=== PATIENT | female | born 1975 | race Caucasian/White ===

== ENCOUNTER → 2020-01-04 14:18 | Outpatient (CLI) | payer OTHER, SELFPAY ==
[2020-01-07 06:44] LABS: COVID19 Sendout Not Detected (Not Detect)
== END ==
PROVIDERS: Visit Provider Physician Assistant
DX: Z01.818 Encounter for other preprocedural examination (principal)
CPT/HCPCS: 87635

== ENCOUNTER 2020-01-07 07:10 | Day surgery (SDC) | payer OTHER, SELFPAY ==
[2020-01-07] MEDS: PROPARACAINE 0.5% OPHTH SOL 2 DROPS EYE-OP (08:05)
[2020-01-07] MEDS: CATARACT EYE COMPOUND (10 DROPS/SYRINGE) 3 DROPS EYE-OP (08:10)
[2020-01-07 08:17] VITALS: BP 100/66; PULSE 74; RESP 20; TEMP 36.2; O2SAT 100; BMI 20.5
--- NOTE | 2020-01-07 09:05 | P.OP_ITS ---
Operative Date/Time/Diagnoses Pre-op diagnosis: Nuclear Cataract Left eye Post-op diagnosis: same Procedure & Clinicians Same procedure as scheduled: Yes Surgeon: Andres Michael Anesthesia Type: MAC +/- and Sedation Operative Notes Procedure in detail: Patient brought to the operating suite. Tetracaine drops placed in the left eye. Patient was prepped and draped in sterile manner. Wire lid speculum was placed in the eye. Betadine drops were placed on the eye. This was irrigated. Lidocaine jelly was placed on the eye. A paracentesis port was created with a side-port blade. 0.1 mL 1% preservative free lidocaine was injected into the anterior chamber. The anterior chamber was deepened with viscoelastic. 2.6 mm keratome was used to create a temporal clear corneal incision. Cystotome and Utrata forceps were used to create continuous tear capsulorrhexis. Balanced salt solution was used to hydro dissect the nucleus. The phacoemulsification handpiece was inserted and the nucleus was removed using the stop and chop technique. The irrigation aspiration handpiece was inserted and the remaining cortex was removed. Anterior chamber was deepened with viscoe lastic. An Rowe ZCB00 intraocular lens with a power of 20.0 was injected into the capsular bag. Irrigation aspiration handpiece was inserted and the remaining viscoelastic was removed. Incision was hydrated with balanced salt solution and found to be leak free with pressure with Weck-Yana sponges. 0.1 mL Vigamox injected anterior chamber. 0.3 mL Kenalog 10 mg was injected subconjunctivally. Lid speculum was removed. The patient left the operating room in excellent condition. Complications: none Post-operative Condition: stable Disposition: same day surgery
--- NOTE | 2020-01-07 09:05 | PM.PREOP ---
Pre-operative Note Interval Note History & Physical reviewed/Exam performed by Physician: Yes Changes to H&P: No
[2020-01-07] MEDS: LIDOCAINE JELLY 2% 5 ML 1 APPLIC TOP (09:27)
[2020-01-07] MEDS: PHENYLEPHRINE/LIDOCAINE VIAL (OR) 0.2 ML EYE-OP (09:27)
[2020-01-07] MEDS: MOXIFLOXACIN INJ 5 MG/ML VIAL EYE-OP (09:27)
[2020-01-07] MEDS: CHONDROIDTIN/SOD HYALURONATE 1.05 ML SYRINGE INTRAOCULA (09:27)
[2020-01-07] MEDS: TRIAMCINOLONE 50 MG/5 ML VIAL INJ (09:27)
[2020-01-07] MEDS: BALANCED SALT IRRIG SOLN NO.2 500 ML, EPINEPHrine 1 MG IRR (09:28)
[2020-01-07] MEDS: TETRACAINE 0.5% OPHTH DROPS 4 ML 2 DROPS EYE-OP (09:28)
[2020-01-07 09:43] VITALS: BP 112/75; PULSE 81; RESP 16; TEMP 36.6; O2SAT 100
== END 2020-01-07 09:50 | disposition home or self-care (01) ==
PROVIDERS: Referring Provider Ophthalmology; Visit Provider Ophthalmology
PROC: (CPT 66984; principal; 2020-01-07 09:15)
DX: H25.12 Age-related nuclear cataract, left eye (principal); J45.909 Unspecified asthma, uncomplicated; R56.9 Unspecified convulsions
CPT/HCPCS: 66984; J0171; J2250; J3301

== ENCOUNTER → 2020-01-18 10:34 | Outpatient (CLI) | payer OTHER, SELFPAY ==
[2020-01-19 07:09] LABS: COVID19 Sendout Not Detected (Not Detect)
== END ==
PROVIDERS: Visit Provider Physician Assistant
DX: Z11.59 Encounter for screening for other viral diseases (principal)
CPT/HCPCS: 87635

== ENCOUNTER 2020-01-21 10:27 | Day surgery (SDC) | payer OTHER, SELFPAY ==
[2020-01-21] MEDS: PROPARACAINE 0.5% OPHTH SOL 2 DROPS EYE-OP (10:45)
[2020-01-21] MEDS: CATARACT EYE COMPOUND (10 DROPS/SYRINGE) 3 DROPS EYE-OP (10:49)
[2020-01-21 10:52] VITALS: BP 105/68; PULSE 70; RESP 14; TEMP 36.1; O2SAT 100
[2020-01-21 10:55] VITALS: BMI 20.3
--- NOTE | 2020-01-21 11:18 | PM.PREOP ---
Pre-operative Note Interval Note History & Physical reviewed/Exam performed by Physician: Yes Changes to H&P: No
--- NOTE | 2020-01-21 11:18 | PM.OP.1 ---
Operative Date/Time/Diagnoses Pre-op diagnosis: Nuclear cataract right eye Procedure & Clinicians Procedure: Cataract Surgery Same procedure as scheduled: Yes Surgeon: Andres Michael Anesthesia Type: MAC +/- and Sedation Operative Notes Procedure in detail: Patient brought to the operating suite. Tetracaine drops placed in the right eye. Patient was prepped and draped in sterile manner. Wire lid speculum was placed in the eye. Betadine drops were placed on the eye. This was irrigated. Lidocaine jelly was placed on the eye. A paracentesis port was created with a side-port blade. 0.1 mL 1% preservative free lidocaine was injected into the anterior chamber. The anterior chamber was deepened with viscoelastic. 2.6 mm keratome was used to create a temporal clear corneal incision. Cystotome and Utrata forceps were used to create continuous tear capsulorrhexis. Balanced salt solution was used to hydro dissect the nucleus. The phacoemulsification handpiece was inserted and the nucleus was removed using the stop and chop technique. The irrigation aspiration handpiece was inserted and the remaining cortex was removed. Anterior chamber was deepened with viscoelastic. An Rowe ZCB00 intraocular lens with a power of 20.5 was injected into the capsular bag. Irrigation aspiration handpiece was inserted and the remaining viscoelastic was removed. Incision was hydrated with balanced salt solution and found to be leak free with pressure with Weck-Yana sponges. 0.1 mL Vigamox injected anterior chamber. 0.3 mL Kenalog 10 mg was injected subconjunctivally. Lid speculum was removed. The patient left the operating room in excellent condition. Complications: none Post-operative Condition: stable Disposition: same day surgery
[2020-01-21] MEDS: PHENYLEPHRINE/LIDOCAINE VIAL (OR) 0.2 ML EYE-OP (11:41)
[2020-01-21] MEDS: LIDOCAINE JELLY 2% 5 ML 1 APPLIC TOP (11:41)
[2020-01-21] MEDS: MOXIFLOXACIN INJ 5 MG/ML VIAL EYE-OP (11:41)
[2020-01-21] MEDS: CHONDROIDTIN/SOD HYALURONATE 1.05 ML SYRINGE INTRAOCULA (11:41)
[2020-01-21] MEDS: TETRACAINE 0.5% OPHTH DROPS 4 ML 2 DROPS EYE-OP (11:42)
[2020-01-21] MEDS: TRIAMCINOLONE 50 MG/5 ML VIAL INJ (11:42)
[2020-01-21] MEDS: BALANCED SALT IRRIG SOLN NO.2 500 ML, EPINEPHrine 1 MG IRR (11:42)
[2020-01-21 13:07] VITALS: BP 116/78; PULSE 80; RESP 16; TEMP 36.8; O2SAT 100
== END 2020-01-21 12:05 | disposition home or self-care (01) ==
PROVIDERS: Referring Provider Ophthalmology; Visit Provider Ophthalmology
PROC: (CPT 66984; principal; 2020-01-21 12:15)
DX: H25.11 Age-related nuclear cataract, right eye (principal); J45.909 Unspecified asthma, uncomplicated; R56.9 Unspecified convulsions
CPT/HCPCS: 66984; J0171; J2250; J2704; J3301